=== PATIENT | female | born 1990 | race Caucasian/White ===

== ENCOUNTER → 2019-10-26 | Outpatient (CLI) | payer OTHER ==
[~2019-10-26] MED LIST: AMOX500 PO; COLCRYS0.6 MG PO; HYDACE5 PO; IBUP800 PO; NAPR500 PO; OMEP40CA12 PO; OTC MEDS; Prilosec20 MG PO; Ultram50 MG PO
== END | disposition home or self-care (01) ==
LOC: LAB EV 16:00 → LAB SHORT 16:00
DX: U07.1 COVID-19 (principal)
CPT/HCPCS: 87081; U0003

== ENCOUNTER → 2020-06-02 | Outpatient (CLI) | payer OTHER ==
[2020-06-02 15:34] LABS: Source, Urine Clean Catch
[2020-06-02 18:10] LABS: Appearance, Urine Clear (Clear); Bilirubin, Urine Neg (Neg); Blood, Urine Neg (Neg); Color, Urine Yellow (P-Yellow); Glucose Qualitative, Urine Neg (Neg); Ketones, Urine Neg (Neg); Leukocyte Esterase, Urine Neg (Neg); Nitrite, Urine Neg (Neg); Protein, Urine Neg (Neg); Specific Gravity, Urine 1.015 (1.003-1.022); Urobilinogen, Urine NORM (Normal); pH, Urine 6.5 (5.0-8.0)
== END ==
LOC: LAB SHORT 09:30 → LAB UCHC 09:30
PROVIDERS: Registered Nurse Community Health
DX: Z34.91 Encounter for supervision of normal pregnancy, unspecified, first trimester (principal)
CPT/HCPCS: 81003; 87086

== ENCOUNTER → 2020-11-07 | Outpatient (CLI) | payer BC, OTHER ==
[2020-11-07 12:41] LABS: Hematocrit 36.3 % (33.0-51.0); Hemoglobin 12.7 g/dL (11.5-16.0)
== END | disposition home or self-care (01) ==
LOC: LAB SHORT 11:51 → LAB 11:51
PROVIDERS: Family Medicine
DX: Z34.92 Encounter for supervision of normal pregnancy, unspecified, second trimester (principal)
CPT/HCPCS: 82950; 85014; 85018

== ENCOUNTER → 2020-12-26 | Outpatient (CLI) | payer BC, OTHER ==
[2020-12-26 18:48] LABS: BASOPHILS ABSOLUTE AUTO 0.03 K/mm3 (0.00-0.23); BASOPHILS PERCENT AUTO 0 % (0-2); EOSINOPHILS ABSOLUTE AUTO 0.04 K/mm3 (0.00-0.68); EOSINOPHILS PERCENT AUTO 0 % (0-6); Hematocrit 38.3 % (33.0-51.0); Hemoglobin 13.3 g/dL (11.5-16.0); IMMATURE GRAN ABSOLUTE AUTO 0.04 K/mm3 (0.00-0.10); IMMATURE GRAN PERCENT AUTO 0 % (0-1); LYMPHOCYTES ABSOLUTE AUTO 1.43 K/mm3 (0.84-5.20); LYMPHOCYTES PERCENT AUTO 13 % (21-46); MONOCYTES ABSOLUTE AUTO 0.63 K/mm3 (0.16-1.47); MONOCYTES PERCENT AUTO 6 % (4-13); Mean Corpuscular HGB Conc 34.7 g/dL (31.5-36.5); Mean Corpuscular Volume 92 fL (80-100); Mean Platelet Volume 12.1 fL (9.1-12.4); NEUTROPHILS ABSOLUTE AUTO 8.89 K/mm3 (1.96-9.15); NEUTROPHILS PERCENT AUTO 80 % (41-73); Platelet Count 176 K/mm3 (150-400); RDW Coefficient Variation 12.7 % (11.7-14.2); RDW Standard Deviation 42.5 fL (35.1-46.3); Red Blood Cell Count 4.15 M/mm3 (3.80-5.20); White Blood Cell Count 11.06 K/mm3 (4.00-11.30)
[2020-12-26 19:08] LABS: Alanine Aminotransfer (ALT/SGP 17 U/L (12-78); Albumin, Blood 2.9 g/dL (3.4-5.0); Albumin/Globulin Ratio 0.8 (0.8-1.8); Alk Phos 80 U/L (50-136); Anion Gap 8 mmol/L (6-16); Aspartate Aminotrans (AST/SGOT 18 U/L (12-37); Bilirubin, Total 0.5 mg/dL (0.1-1.0); Blood Urea Nitrogen 10 mg/dL (8-24); CO2, Blood 21 mmol/L (21-32); Calcium, Blood 8.9 mg/dL (8.5-10.1); Chloride, Blood 107 mmol/L (98-108); Creatinine, Blood 0.56 mg/dL (0.40-1.00); Globulin, Blood 3.7 g/dL (2.2-4.0); Glomerular Filtration Rate >60 (60-); Glucose, Blood 83 mg/dL (70-99); Potassium, Blood 4.1 mmol/L (3.5-5.5); Sodium, Blood 136 mmol/L (136-145); Total Protein, Blood 6.6 g/dL (6.4-8.2)
== END | disposition home or self-care (01) ==
LOC: LAB SHORT 18:18
PROVIDERS: Family Medicine
DX: Z34.92 Encounter for supervision of normal pregnancy, unspecified, second trimester (principal)
CPT/HCPCS: 80053; 85025

== ENCOUNTER → 2020-12-29 | Outpatient (CLI) | payer BC, OTHER | LOC: LAB 09:15 → LAB SHORT 09:15 | DX: Z34.92 Encounter for supervision of normal pregnancy, unspecified, second trimester (principal) | CPT/HCPCS: 87081; 87150 ==

== ENCOUNTER 2021-01-26 15:53 | Inpatient (IN) | payer BC, OTHER ==
[~2021-01-26] VITALS: Ht 167.6 cm; Wt 125.0 kg
[2021-01-26 17:05] LABS: Influenza A, PCR NEGATIVE (NEGATIVE); Influenza B, PCR NEGATIVE (NEGATIVE); Resp Syncytial Virus, PCR NEGATIVE (NEGATIVE); SARS-Cov-2 (COVID-19) PCR, MMC NEGATIVE (NEGATIVE)
[2021-01-26 17:48] LABS: BASOPHILS ABSOLUTE AUTO 0.02 K/mm3 (0.00-0.23); BASOPHILS PERCENT AUTO 0 % (0-2); EOSINOPHILS ABSOLUTE AUTO 0.03 K/mm3 (0.00-0.68); EOSINOPHILS PERCENT AUTO 0 % (0-6); Hematocrit 37.3 % (33.0-51.0); IMMATURE GRAN ABSOLUTE AUTO 0.03 K/mm3 (0.00-0.10); IMMATURE GRAN PERCENT AUTO 0 % (0-1); LYMPHOCYTES ABSOLUTE AUTO 1.46 K/mm3 (0.84-5.20); LYMPHOCYTES PERCENT AUTO 13 % (21-46); MONOCYTES ABSOLUTE AUTO 0.78 K/mm3 (0.16-1.47); MONOCYTES PERCENT AUTO 7 % (4-13); Mean Corpuscular HGB 31.4 pg (26.0-34.0); Mean Corpuscular HGB Conc 34.9 g/dL (31.5-36.5); Mean Corpuscular Volume 90 fL (80-100); Mean Platelet Volume 11.9 fL (9.1-12.4); NEUTROPHILS ABSOLUTE AUTO 8.65 K/mm3 (1.96-9.15); NEUTROPHILS PERCENT AUTO 79 % (41-73); Platelet Count 170 K/mm3 (150-400); RDW Coefficient Variation 12.5 % (11.7-14.2); RDW Standard Deviation 40.5 fL (35.1-46.3); Red Blood Cell Count 4.14 M/mm3 (3.80-5.20); White Blood Cell Count 10.97 K/mm3 (4.00-11.30)
--- NOTE | 2021-01-27 22:00 | NUR ---
DISCUSSED DISCHARGE INSTRUCTIONS AND ANSWERED QUESTIONS. PT WAS GIVEN A DISCHARGE PACKET WITH MOST IMPORTANT INFO AND HER PROVIDER'S PERSONAL CELL PHONE NUMBER WRITTEN ON IT, REQUESTED PER PROVIDER. DISCUSSED ALTERNATING TYLENOL AND IBUPROFEN, FLUID INTAKE, RESTING AND BLEEDING WITH PT. HER POWERGLIDE WAS REMOVED WITH NO ISSUES. PATIENT WAS DISCHARGED WITH HER SPOUSE AND THEIR , WHO IS BEING TRANSFERED TO [facility] FOR HIGHER LEVEL OF CARE. ENCOURAGED MOTHER TO CALL HER PROVIDER OR [facility] WITH ANY FURTHER QUESTIONS. HER BLEEDING IS SCANT, FUNDUS FIRM AND MIDLINE AND SHE IS INCREASING HER FLUID INTAKE. AMBULATES BY HERSELF WITH NO TROUBLE.
== END 2021-01-27 22:00 | disposition home or self-care (01) | DRG 807 ==
LOC: OBS 15:53 → BC 15:54 → OBS 16:05 → BC 16:13
PROVIDERS: ADMIT Family Medicine
PROC: 10D07Z6 Extraction of Products of Conception, Vacuum, Via Natural or Artificial Opening (ICD-10-PCS; principal; 2021-01-27)
PROC: 0KQM0ZZ Repair Perineum Muscle, Open Approach (ICD-10-PCS; 2021-01-27)
PROC: 10907ZC Drainage of Amniotic Fluid, Therapeutic from Products of Conception, Via Natural or Artificial Opening (ICD-10-PCS; 2021-01-27)
PROC: 3E0R3BZ Introduction of Anesthetic Agent into Spinal Canal, Percutaneous Approach (ICD-10-PCS; 2021-01-27)
PROC: 00HU33Z Insertion of Infusion Device into Spinal Canal, Percutaneous Approach (ICD-10-PCS; 2021-01-27)
DX: O48.0 Post-term pregnancy (principal); Z37.0 Single live birth; Z3A.40 40 weeks gestation of pregnancy; Z20.822 Contact with and (suspected) exposure to COVID-19; G89.29 Other chronic pain; M54.50 Low back pain, unspecified; O99.892 Other specified diseases and conditions complicating childbirth; O76 Abnormality in fetal heart rate and rhythm complicating labor and delivery; O69.1XX0 Labor and delivery complicated by cord around neck, with compression, not applicable or unspecified; O70.0 First degree perineal laceration during delivery; O99.214 Obesity complicating childbirth; E66.9 Obesity, unspecified
CPT/HCPCS: 0241U; 36415; 51702; 59070; 85025; 86850; 86900; 86901; A9270; C1751; J1885; J2001; J2590; J3010; J7030; J7120; J7121

== ENCOUNTER → 2021-09-18 | Outpatient (CLI) | payer BC, OTHER ==
[2021-09-19 14:22] LABS: Candida species (DNA Probe) Negative (NEGATIVE); G. vaginalis (DNA Probe) Positive (NEGATIVE); T. vaginalis (DNA Probe) Negative (NEGATIVE)
== END | disposition home or self-care (01) ==
LOC: LAB SHORT 12:29 → LAB 12:29
PROVIDERS: Family Medicine
DX: N94.12 Deep dyspareunia (principal); N89.8 Other specified noninflammatory disorders of vagina; R39.15 Urgency of urination
CPT/HCPCS: 87086; 87147; 87480; 87510; 87660

== ENCOUNTER 2024-05-18 13:38 | Emergency (ER) | payer BC, OTHER ==
[~2024-05-18] VITALS: Ht 167.6 cm; Wt 90.7 kg
[2024-05-18 13:45] VITALS: BP 141/68
[2024-05-18 14:22] LABS: BASOPHILS ABSOLUTE AUTO 0.04 K/mm3 (0.00-0.23); BASOPHILS PERCENT AUTO 1 % (0-2); EOSINOPHILS ABSOLUTE AUTO 0.12 K/mm3 (0.00-0.68); EOSINOPHILS PERCENT AUTO 2 % (0-6); Hematocrit 40.2 % (33.0-51.0); Hemoglobin 14.3 g/dL (11.5-16.0); IMMATURE GRAN ABSOLUTE AUTO 0.01 K/mm3 (0.00-0.10); IMMATURE GRAN PERCENT AUTO 0 % (0-1); LYMPHOCYTES ABSOLUTE AUTO 1.52 K/mm3 (0.84-5.20); LYMPHOCYTES PERCENT AUTO 24 % (21-46); MONOCYTES ABSOLUTE AUTO 0.44 K/mm3 (0.16-1.47); MONOCYTES PERCENT AUTO 7 % (4-13); Mean Corpuscular HGB 30.8 pg (26.0-34.0); Mean Corpuscular HGB Conc 35.6 g/dL (31.5-36.5); Mean Corpuscular Volume 87 fL (80-100); NEUTROPHILS ABSOLUTE AUTO 4.27 K/mm3 (1.96-9.15); NEUTROPHILS PERCENT AUTO 67 % (41-73); Platelet Count 189 K/mm3 (150-400); RDW Coefficient Variation 12.4 % (11.7-14.2); RDW Standard Deviation 38.8 fL (35.1-46.3); Red Blood Cell Count 4.65 M/mm3 (3.80-5.20)
[2024-05-18 14:53] LABS: Albumin, Blood 4.4 g/dL (3.4-5.0); Albumin/Globulin Ratio 1.5 (0.8-1.8); Bilirubin, Total 0.6 mg/dL (0.1-1.0); Bun/Creatinine Ratio 21.8 (12.0-20.0); Creatinine, Blood 0.64 mg/dL (0.40-1.00); Globulin, Blood 2.9 g/dL (2.2-4.0); Potassium, Blood 3.4 mmol/L (3.5-5.5); Total Protein, Blood 7.3 g/dL (6.4-8.2)
== END 2024-05-18 17:18 | disposition home or self-care (01) ==
LOC: ER 13:38
PROVIDERS: Emergency Medicine
DX: R07.2 Precordial pain (principal); F41.9 Anxiety disorder, unspecified; Z87.891 Personal history of nicotine dependence
CPT/HCPCS: 71046; 80053; 83690; 84484; 85025; 93005; 93010; 99285-25